=== PATIENT | female | born 1975 | race Caucasian/White ===

== ENCOUNTER → 2024-07-13 08:04 | Outpatient (CLI) | payer OTHER ==
[~2024-07-13 08:04] MED LIST: PRENA1 SOFTGEL1 EACH PO; PREVACID30 MG; ZANTAC150 MG
== END | disposition home or self-care (01) ==
LOC: LAB 08:04
PROVIDERS: ATTEND Orthopaedic Surgery
DX: E55.9 Vitamin D deficiency, unspecified (principal); M85.9 Disorder of bone density and structure, unspecified; E56.1 Deficiency of vitamin K